=== PATIENT | female | born 1955 | race Caucasian/White ===

== ENCOUNTER 2022-06-29 04:15 | Emergency (ER) | payer BC ==
[2022-06-29] MEDS ORDERED: Sodium Chloride 0.9% 10 ML Syringe FLUSH PRN (04:36)
[2022-06-29] MEDS ORDERED: Sodium Chloride 0.9% 1,000 ML IV SCH (04:45)
[2022-06-29 05:12] LABS: ESTIMATED GFR 63 mL/min (>60)
== END 2022-06-29 08:55 | disposition home or self-care (01) ==
LOC: JP.ED 04:15
DX: A31.0 Pulmonary mycobacterial infection (principal); J47.9 Bronchiectasis, uncomplicated; R04.2 Hemoptysis; R91.1 Solitary pulmonary nodule
CPT/HCPCS: 36415; 71046; 71250; 80053; 81001; 85025; 85610; 85730; 96360; 96361; 99285; J3490; J7030